=== PATIENT | female | born 1970 | race Native Hawaiian/Other Pacific Islander ===

== ENCOUNTER 2022-10-12 15:02 | Outpatient (CLI) | payer OTHER | END 2022-10-12 21:44 | disposition home or self-care (01) | LOC: RAD 15:02 | PROVIDERS: ATTEND Physician Assistant | DX: M25.512 Pain in left shoulder (principal) ==

== ENCOUNTER 2023-03-22 11:47 | Outpatient (CLI) | payer OTHER | END 2023-03-22 23:22 | disposition home or self-care (01) | LOC: RAD 11:47 | PROVIDERS: ATTEND Physician Assistant | DX: M25.512 Pain in left shoulder (principal) ==